=== PATIENT | female | born 1935 | race Caucasian/White ===

== ENCOUNTER 2018-10-14 18:35 | Inpatient (IN) | payer MEDICARE, OTHER ==
[2018-10-14 20:05] LABS: ADD MAN DIFF? NO
[2018-10-14 20:14] LABS: BASOPHIL # 0.1 10^3/ul (0.0-0.1); BASOPHILS % 0.6 % (0.0-2.0); EOSINOPHILS # 0.2 10^3/ul (0.0-0.5); EOSINOPHILS % 1.7 % (0.0-7.0); HEMATOCRIT 38.9 % (37.0-47.0); HEMOGLOBIN 12.6 g/dl (12.0-16.0); LYMPHOCYTES % 9.1 % (15.0-51.0); MEAN CORPUSCULAR HEMOGLOBIN 26.3 pg (29.0-33.0); MEAN CORPUSCULAR HGB CONC 32.4 g/dl (32.0-37.0); MEAN CORPUSCULAR VOLUME 81.2 fl (82.0-101.0); MEAN PLATELET VOLUME 11.3 fl (7.4-10.4); MONOCYTE # 1.1 10^3/ul (0.3-0.9); MONOCYTES % 9.6 % (0.0-11.0); NEUTROPHIL # 8.9 10^3/ul (1.6-7.5); NEUTROPHILS % 78.4 % (39.0-77.0); PLATELET COUNT 318 10^3/UL (140-415); RED BLOOD COUNT 4.79 10^6/ul (4.20-5.40); RED CELL DISTRIBUTION WIDTH 16.1 % (11.5-14.5)
[2018-10-14 20:14] LABS: WHITE BLOOD COUNT 11.4 10^3/ul (4.8-10.8)
[2018-10-14 20:41] LABS: ALANINE AMINOTRANSFERASE 24 IU/L (13-69); ALBUMIN 4.7 g/dl (3.3-4.9); ALBUMIN/GLOBULIN RATIO 1.34; ALKALINE PHOSPHATASE 74 IU/L (42-121); ANION GAP 15 (5-13); ASPARTATE AMINO TRANSFERASE 24 IU/L (15-46); BILIRUBIN,INDIRECT 0.7 mg/dl (0-1.1); BILIRUBIN,TOTAL 0.7 mg/dl (0.2-1.3); BLOOD UREA NITROGEN 10 mg/dl (7-20); CALCIUM 9.5 mg/dl (8.4-10.2); CARBON DIOXIDE 23 mmol/L (21-31); CHLORIDE 98 mmol/L (97-110); CREATININE 1.04 mg/dl (0.44-1.00); GLUCOSE 184 mg/dl (70-220); LIPASE 130 U/L (23-300); SODIUM 136 mmol/L (135-144); TOTAL PROTEIN 8.2 g/dl (6.1-8.1)
[2018-10-14 20:53] LABS: B-TYPE NATRIURETIC PEPTIDE 2300 PG/ML (0-450); TROPONIN-I < 0.012 ng/ml (0.000-0.120)
[2018-10-14] MEDS: FUROSEMIDE 20 MG INJ IV (20:53)
[2018-10-14 21:02] LABS: DIGOXIN 0.8 ng/ml (1.0-2.0)
[2018-10-14] MEDS: HEPARIN 5,000 UNIT/1 ML VIAL SC (21:54)
[2018-10-14] MEDS ORDERED: hydrALAzine 20 MG INJ IV (22:00)
[2018-10-14] MEDS ORDERED: DOCUSATE SODIUM 100 MG CAP PO (22:00)
[2018-10-14] MEDS ORDERED: NACL 0.9% 3 ML SYG IV (22:00)
[2018-10-14] MEDS: ATROPINE 1 MG/10 ML SYRINGE IV (22:03)
[2018-10-14 22:16] LABS: CREATINE KINASE 87 IU/L (23-200)
[2018-10-14 22:28] LABS: CK-MB 0.85 ng/ml (0.0-2.4); TROPONIN-I < 0.012 ng/ml (0.000-0.120)
[2018-10-15 01:43] LABS: MAGNESIUM 1.8 mg/dl (1.7-2.5)
[2018-10-15 01:44] LABS: CREATINE KINASE 84 IU/L (23-200)
[2018-10-15 01:56] LABS: CK-MB 0.84 ng/ml (0.0-2.4); TROPONIN-I < 0.012 ng/ml (0.000-0.120)
[2018-10-15] MEDS ORDERED: hydrALAzine 20 MG INJ IV (02:00)
[2018-10-15] MEDS: DOPamine-D5W 1.6 MG/ML 250 ML IV ×2 (02:18→15:10)
[2018-10-15] MEDS: MAGNESIUM SULFATE 2 GM/50 ML 50 ML IVPB (02:33)
[2018-10-15] MEDS: LIDOCAINE 1% (MPF) 5 ML VIAL SC (03:30)
[2018-10-15] MEDS: GLUCAGON 1 MG INJ IV (04:09)
[2018-10-15] MEDS: FUROSEMIDE 20 MG INJ IV (04:30)
[2018-10-15] MEDS: RIVAROXABAN 15 MG TABLET PO (04:45)
[2018-10-15] MEDS: ONDANSETRON 4 MG INJ IV ×2 (05:38→12:53)
[2018-10-15 06:13] LABS: MAGNESIUM 2.4 mg/dl (1.7-2.5)
[2018-10-15 06:13] LABS: CHOL/HDL RATIO 5.4 RATIO; CHOLESTEROL 195 mg/dl (100-200); HDL CHOLESTEROL 36 mg/dl (33-92); LDL CHOLESTEROL,CALCULATED 120 mg/dl; TRIGLYCERIDES 193 mg/dl (0-149)
[2018-10-15 06:21] LABS: CREATINE KINASE 89 IU/L (23-200)
[2018-10-15 06:25] LABS: DIGOXIN 0.7 ng/ml (1.0-2.0)
[2018-10-15 06:27] LABS: CK-MB 0.89 ng/ml (0.0-2.4); TROPONIN-I < 0.012 ng/ml (0.000-0.120)
[2018-10-15 06:44] LABS: THYROID STIMULATING HORMONE 0.806 MIU/L (0.465-4.680)
[2018-10-15] MEDS ORDERED: RIVAROXABAN 15 MG TABLET PO (07:35)
[2018-10-15 07:59] LABS: ADD MAN DIFF? NO
[2018-10-15 08:03] LABS: BASOPHIL # 0.1 10^3/ul (0.0-0.1); BASOPHILS % 0.4 % (0.0-2.0); EOSINOPHILS # 0.3 10^3/ul (0.0-0.5); EOSINOPHILS % 1.9 % (0.0-7.0); HEMATOCRIT 36.9 % (37.0-47.0); LYMPHOCYTES # 0.9 10^3/ul (0.8-2.9); LYMPHOCYTES % 6.4 % (15.0-51.0); MEAN CORPUSCULAR HEMOGLOBIN 26.8 pg (29.0-33.0); MEAN CORPUSCULAR HGB CONC 32.5 g/dl (32.0-37.0); MEAN CORPUSCULAR VOLUME 82.4 fl (82.0-101.0); MEAN PLATELET VOLUME 12.1 fl (7.4-10.4); MONOCYTES % 7.8 % (0.0-11.0); NEUTROPHIL # 11.2 10^3/ul (1.6-7.5); NEUTROPHILS % 83.1 % (39.0-77.0); PLATELET COUNT 309 10^3/UL (140-415); RED BLOOD COUNT 4.48 10^6/ul (4.20-5.40)
[2018-10-15 08:03] LABS: WHITE BLOOD COUNT 13.4 10^3/ul (4.8-10.8)
[2018-10-15 08:15] LABS: ALANINE AMINOTRANSFERASE 26 IU/L (13-69); ALBUMIN 4.4 g/dl (3.3-4.9); ALBUMIN/GLOBULIN RATIO 1.37; ALKALINE PHOSPHATASE 72 IU/L (42-121); ANION GAP 15 (5-13); ASPARTATE AMINO TRANSFERASE 28 IU/L (15-46); BILIRUBIN,INDIRECT 0.7 mg/dl (0-1.1); BILIRUBIN,TOTAL 0.7 mg/dl (0.2-1.3); BLOOD UREA NITROGEN 12 mg/dl (7-20); CALCIUM 9.2 mg/dl (8.4-10.2); CARBON DIOXIDE 21 mmol/L (21-31); CHLORIDE 100 mmol/L (97-110); CREATININE 1.19 mg/dl (0.44-1.00); GLUCOSE 206 mg/dl (70-220); POTASSIUM 3.4 mmol/L (3.5-5.1); SODIUM 136 mmol/L (135-144); TOTAL PROTEIN 7.6 g/dl (6.1-8.1)
[2018-10-15] MEDS: INSULIN ASPART [NOVOLOG] 3 ML PEN SC ×4 (08:15→20:41)
[2018-10-15] MEDS: POTASSIUM CHLORIDE 20 MEQ POWDER FOR ORAL SOLN PO (11:11)
[2018-10-15] MEDS: FUROSEMIDE 40 MG INJ IV (11:11)
[2018-10-15] MEDS ORDERED: FUROSEMIDE 20 MG INJ IV (14:00)
[2018-10-15 14:54] LABS: ADD UMIC YES; UR ASCORBIC ACID NEGATIVE (NEGATIVE); UR BILIRUBIN (Dip) NEGATIVE (NEGATIVE); UR BLOOD (Dip) 3+ mg/dL (NEGATIVE); UR CELLULAR CAST FEW /HPF (NONE SEEN); UR CLARITY CLOUDY (CLEAR); UR COLOR AMBER (YELLOW); UR GLUCOSE (Dip) NEGATIVE (NEGATIVE); UR HYALINE CAST FEW /HPF (NONE SEEN); UR KETONES (Dip) NEGATIVE (NEGATIVE); UR LEUKOCYTE ESTERASE (Dip) TRACE Leu/ul (NEGATIVE); UR MUCUS FEW /HPF (NONE SEEN); UR NITRITE (Dip) NEGATIVE (NEGATIVE); UR RBC 152 /HPF (0-5); UR SPECIFIC GRAVITY (Dip) 1.011 (1.003-1.030); UR SQUAMOUS EPITHELIAL CELL FEW /HPF (FEW); UR TOTAL PROTEIN (Dip) 2+ mg/dl (NEGATIVE); UR UROBILINOGEN (Dip) NEGATIVE (NEGATIVE); UR WBC 19 /HPF (0-5)
[2018-10-15 15:00] LABS: PROTIME 19.1 Sec (11.9-14.9); PT RATIO 1.5
[2018-10-15 15:01] LABS: PARTIAL THROMBOPLASTIN TIME 45.9 Sec (23.0-35.0)
[2018-10-16 05:40] LABS: ADD MAN DIFF? NO
[2018-10-16 05:44] LABS: WHITE BLOOD COUNT 12.3 10^3/ul (4.8-10.8)
[2018-10-16 05:44] LABS: BASOPHIL # 0.1 10^3/ul (0.0-0.1); BASOPHILS % 0.4 % (0.0-2.0); EOSINOPHILS # 0.2 10^3/ul (0.0-0.5); EOSINOPHILS % 1.5 % (0.0-7.0); HEMATOCRIT 33.6 % (37.0-47.0); LYMPHOCYTES # 0.8 10^3/ul (0.8-2.9); LYMPHOCYTES % 6.1 % (15.0-51.0); MEAN CORPUSCULAR HEMOGLOBIN 26.8 pg (29.0-33.0); MEAN CORPUSCULAR HGB CONC 32.7 g/dl (32.0-37.0); MEAN PLATELET VOLUME 11.3 fl (7.4-10.4); MONOCYTE # 1.3 10^3/ul (0.3-0.9); MONOCYTES % 10.8 % (0.0-11.0); NEUTROPHIL # 9.9 10^3/ul (1.6-7.5); NEUTROPHILS % 80.7 % (39.0-77.0); PLATELET COUNT 265 10^3/UL (140-415); RED CELL DISTRIBUTION WIDTH 15.9 % (11.5-14.5)
[2018-10-16 06:21] LABS: ALANINE AMINOTRANSFERASE 20 IU/L (13-69); ALBUMIN/GLOBULIN RATIO 1.33; ALKALINE PHOSPHATASE 56 IU/L (42-121); ANION GAP 12 (5-13); ASPARTATE AMINO TRANSFERASE 20 IU/L (15-46); BLOOD UREA NITROGEN 17 mg/dl (7-20); CALCIUM 9.5 mg/dl (8.4-10.2); CARBON DIOXIDE 27 mmol/L (21-31); CHLORIDE 99 mmol/L (97-110); CREATININE 1.29 mg/dl (0.44-1.00); GLUCOSE 155 mg/dl (70-220); MAGNESIUM 2.2 mg/dl (1.7-2.5); POTASSIUM 4.3 mmol/L (3.5-5.1); SODIUM 138 mmol/L (135-144)
[2018-10-16] MEDS: INSULIN ASPART [NOVOLOG] 3 ML PEN SC ×4 (07:03→21:00)
[2018-10-16] MEDS ORDERED: IOHEXOL 300MG/ML 30 ML BTL (07:03)
[2018-10-16] MEDS: POLYMYXIN/BACITRACIN 1L IRRIG IRR (07:03)
[2018-10-16] MEDS: LIDOCAINE 1% (MPF) 30 ML INJ (07:03)
[2018-10-16] MEDS: DOPamine-D5W 1.6 MG/ML 250 ML IV (08:02)
[2018-10-16] MEDS ORDERED: ETOMIDATE 20 MG INJ (08:15)
[2018-10-16] MEDS ORDERED: CEFAZOLIN 1 GM INJ (08:16)
[2018-10-16] MEDS ORDERED: FENTAnyl 50 MCG/ML VIAL (08:19)
[2018-10-16] MEDS ORDERED: GLUCOSE GEL 15 GRAM TUBE PO ×2 (10:00)
[2018-10-16] MEDS ORDERED: GLUCAGON 1 MG INJ IM (10:00)
[2018-10-16] MEDS ORDERED: DEXTROSE 50% 50 ML SYRINGE IV ×2 (10:00)
[2018-10-16] MEDS ORDERED: GLUCOSE GEL 15 GRAM TUBE BUCCAL (10:00)
[2018-10-16 10:49] LABS: AADO2 Arterial 126.4 mmHg (7.0-24.0); Allen Test ACCEPTAB; Arterial Base Excess -0.2 mmol/L (-3.0-3); Arterial Blood Gas Oxygen Sat 96.6 mmHG (95.0-100.0); Arterial COHb 0.2 % (0.0-3.0); Arterial Fraction of Oxyhgb 96.1 % (93.0-99.0); Arterial HCO3 23.7 mmol/L (22.0-26.0); Arterial MetHb 0.3 % (0.0-1.5); Arterial pCO2 36.5 mmhg (35-45); MODE NASAL CANNULA; Site Right Radial
[2018-10-16] MEDS: FUROSEMIDE 40 MG INJ IV ×2 (14:42→20:22)
[2018-10-16] MEDS: CEFAZOLIN 1 GM/50 ML (PMX) 50 ML IVPB ×2 (14:43→22:06)
[2018-10-17] MEDS: FUROSEMIDE 40 MG INJ IV ×2 (05:56→17:05)
[2018-10-17 07:31] LABS: ADD MAN DIFF? NO
[2018-10-17 07:39] LABS: ABNORMAL IP MESSAGE 1; BASOPHIL # 0.1 10^3/ul (0.0-0.1); BASOPHILS % 0.5 % (0.0-2.0); EOSINOPHILS # 0.2 10^3/ul (0.0-0.5); EOSINOPHILS % 2.1 % (0.0-7.0); HEMOGLOBIN 10.7 g/dl (12.0-16.0); LYMPHOCYTES # 0.6 10^3/ul (0.8-2.9); LYMPHOCYTES % 5.7 % (15.0-51.0); MEAN CORPUSCULAR HEMOGLOBIN 26.4 pg (29.0-33.0); MEAN CORPUSCULAR HGB CONC 31.5 g/dl (32.0-37.0); MEAN PLATELET VOLUME 11.4 fl (7.4-10.4); MONOCYTE # 1.1 10^3/ul (0.3-0.9); NEUTROPHILS % 80.4 % (39.0-77.0); PLATELET COUNT 230 10^3/UL (140-415); RED BLOOD COUNT 4.05 10^6/ul (4.20-5.40); RED CELL DISTRIBUTION WIDTH 15.9 % (11.5-14.5)
[2018-10-17 07:41] LABS: POSITIVE DIFF @See below
[2018-10-17] MEDS: INSULIN ASPART [NOVOLOG] 3 ML PEN SC ×4 (08:02→21:00)
[2018-10-17 08:28] LABS: ALANINE AMINOTRANSFERASE 22 IU/L (13-69); ALBUMIN 3.6 g/dl (3.3-4.9); ALBUMIN/GLOBULIN RATIO 1.28; ALKALINE PHOSPHATASE 56 IU/L (42-121); ANION GAP 13 (5-13); ASPARTATE AMINO TRANSFERASE 16 IU/L (15-46); BILIRUBIN,INDIRECT 0.6 mg/dl (0-1.1); BILIRUBIN,TOTAL 0.6 mg/dl (0.2-1.3); BLOOD UREA NITROGEN 21 mg/dl (7-20); CALCIUM 9.2 mg/dl (8.4-10.2); CARBON DIOXIDE 29 mmol/L (21-31); CHLORIDE 101 mmol/L (97-110); CREATININE 1.09 mg/dl (0.44-1.00); GLUCOSE 144 mg/dl (70-220); POTASSIUM 3.9 mmol/L (3.5-5.1); SODIUM 143 mmol/L (135-144); TOTAL PROTEIN 6.4 g/dl (6.1-8.1)
[2018-10-17 08:29] LABS: ANION GAP 12 (5-13); BLOOD UREA NITROGEN 20 mg/dl (7-20); CALCIUM 9.1 mg/dl (8.4-10.2); CARBON DIOXIDE 30 mmol/L (21-31); CHLORIDE 100 mmol/L (97-110); CREATININE 1.14 mg/dl (0.44-1.00); GLUCOSE 146 mg/dl (70-220); MAGNESIUM 1.9 mg/dl (1.7-2.5); POTASSIUM 3.7 mmol/L (3.5-5.1); SODIUM 142 mmol/L (135-144)
[2018-10-17 11:02] LABS: ADD MAN DIFF? NO
[2018-10-17 11:10] LABS: WHITE BLOOD COUNT 10.4 10^3/ul (4.8-10.8)
[2018-10-17 11:10] LABS: ABNORMAL IP MESSAGE 1; BASOPHILS % 0.4 % (0.0-2.0); EOSINOPHILS # 0.2 10^3/ul (0.0-0.5); EOSINOPHILS % 1.8 % (0.0-7.0); HEMATOCRIT 34.7 % (37.0-47.0); HEMOGLOBIN 10.9 g/dl (12.0-16.0); LYMPHOCYTES # 0.5 10^3/ul (0.8-2.9); LYMPHOCYTES % 5.2 % (15.0-51.0); MEAN CORPUSCULAR HEMOGLOBIN 26.4 pg (29.0-33.0); MEAN CORPUSCULAR HGB CONC 31.4 g/dl (32.0-37.0); MEAN PLATELET VOLUME 11.2 fl (7.4-10.4); MONOCYTE # 0.9 10^3/ul (0.3-0.9); MONOCYTES % 8.9 % (0.0-11.0); NEUTROPHIL # 8.7 10^3/ul (1.6-7.5); NEUTROPHILS % 83.1 % (39.0-77.0); PLATELET COUNT 240 10^3/UL (140-415); RED BLOOD COUNT 4.13 10^6/ul (4.20-5.40); RED CELL DISTRIBUTION WIDTH 15.9 % (11.5-14.5)
[2018-10-17 11:15] LABS: POSITIVE DIFF @See below
[2018-10-17] MEDS: POTASSIUM CHLORIDE 20 MEQ POWDER FOR ORAL SOLN PO (11:40)
[2018-10-17] MEDS: CEPHALEXIN 500 MG CAP PO ×2 (13:25→21:32)
[2018-10-17] MEDS: RIVAROXABAN 15 MG TABLET PO (17:05)
[2018-10-17] MEDS: LOSARTAN 50 MG TAB PO (17:07)
[2018-10-18] MEDS: hydrALAzine 20 MG INJ IV ×2 (03:56→20:25)
[2018-10-18 06:19] LABS: ADD MAN DIFF? NO
[2018-10-18] MEDS: FUROSEMIDE 40 MG INJ IV ×2 (06:22→17:20)
[2018-10-18 06:24] LABS: WHITE BLOOD COUNT 9.8 10^3/ul (4.8-10.8)
[2018-10-18 06:24] LABS: BASOPHIL # 0.1 10^3/ul (0.0-0.1); BASOPHILS % 0.5 % (0.0-2.0); EOSINOPHILS # 0.3 10^3/ul (0.0-0.5); HEMATOCRIT 34.6 % (37.0-47.0); LYMPHOCYTES # 0.7 10^3/ul (0.8-2.9); MEAN CORPUSCULAR HEMOGLOBIN 26.6 pg (29.0-33.0); MEAN CORPUSCULAR HGB CONC 31.8 g/dl (32.0-37.0); MEAN CORPUSCULAR VOLUME 83.8 fl (82.0-101.0); MEAN PLATELET VOLUME 11.3 fl (7.4-10.4); MONOCYTE # 0.9 10^3/ul (0.3-0.9); MONOCYTES % 9.1 % (0.0-11.0); NEUTROPHIL # 7.9 10^3/ul (1.6-7.5); PLATELET COUNT 266 10^3/UL (140-415); RED BLOOD COUNT 4.13 10^6/ul (4.20-5.40); RED CELL DISTRIBUTION WIDTH 15.9 % (11.5-14.5)
[2018-10-18 06:42] LABS: MAGNESIUM 1.8 mg/dl (1.7-2.5)
[2018-10-18 06:48] LABS: ALANINE AMINOTRANSFERASE 8 IU/L (13-69); ALBUMIN 3.8 g/dl (3.3-4.9); ALBUMIN/GLOBULIN RATIO 1.15; ALKALINE PHOSPHATASE 66 IU/L (42-121); ANION GAP 10 (5-13); ASPARTATE AMINO TRANSFERASE 18 IU/L (15-46); BILIRUBIN,INDIRECT 0.7 mg/dl (0-1.1); BILIRUBIN,TOTAL 0.7 mg/dl (0.2-1.3); BLOOD UREA NITROGEN 22 mg/dl (7-20); CALCIUM 8.9 mg/dl (8.4-10.2); CARBON DIOXIDE 32 mmol/L (21-31); CHLORIDE 99 mmol/L (97-110); GLUCOSE 131 mg/dl (70-220); POTASSIUM 3.8 mmol/L (3.5-5.1); SODIUM 141 mmol/L (135-144); TOTAL PROTEIN 7.1 g/dl (6.1-8.1)
[2018-10-18] MEDS: CEPHALEXIN 500 MG CAP PO ×2 (08:20→20:25)
[2018-10-18] MEDS: LOSARTAN 50 MG TAB PO ×2 (08:20→15:25)
[2018-10-18] MEDS: INSULIN ASPART [NOVOLOG] 3 ML PEN SC ×4 (08:25→20:26)
[2018-10-18] MEDS: POTASSIUM CHLORIDE 20 MEQ POWDER FOR ORAL SOLN PO (11:05)
[2018-10-18] MEDS: MAGNESIUM SULFATE 1 GM/D5W 100 ML IVPB (11:06)
[2018-10-18] MEDS: RIVAROXABAN 15 MG TABLET PO (17:20)
[2018-10-19] MEDS: hydrALAzine 20 MG INJ IV (04:30)
[2018-10-19] MEDS: CEPHALEXIN 500 MG CAP PO ×2 (08:14→19:53)
[2018-10-19] MEDS: FUROSEMIDE 20 MG TAB PO (08:14)
[2018-10-19] MEDS: POTASSIUM CHLORIDE (SR) 10 MEQ TAB PO (08:14)
[2018-10-19] MEDS: LOSARTAN 50 MG TAB PO (08:15)
[2018-10-19] MEDS: INSULIN ASPART [NOVOLOG] 3 ML PEN SC ×4 (08:28→19:56)
[2018-10-19 08:39] LABS: ADD MAN DIFF? NO
[2018-10-19 08:42] LABS: BASOPHIL # 0.1 10^3/ul (0.0-0.1); BASOPHILS % 0.7 % (0.0-2.0); EOSINOPHILS # 0.3 10^3/ul (0.0-0.5); EOSINOPHILS % 3.9 % (0.0-7.0); HEMATOCRIT 36.9 % (37.0-47.0); HEMOGLOBIN 11.9 g/dl (12.0-16.0); LYMPHOCYTES # 0.7 10^3/ul (0.8-2.9); LYMPHOCYTES % 7.6 % (15.0-51.0); MEAN CORPUSCULAR HEMOGLOBIN 27.1 pg (29.0-33.0); MEAN CORPUSCULAR HGB CONC 32.2 g/dl (32.0-37.0); MEAN CORPUSCULAR VOLUME 84.1 fl (82.0-101.0); MEAN PLATELET VOLUME 10.9 fl (7.4-10.4); MONOCYTE # 0.8 10^3/ul (0.3-0.9); MONOCYTES % 8.8 % (0.0-11.0); NEUTROPHIL # 6.8 10^3/ul (1.6-7.5); NEUTROPHILS % 78.8 % (39.0-77.0); PLATELET COUNT 266 10^3/UL (140-415); RED BLOOD COUNT 4.39 10^6/ul (4.20-5.40); RED CELL DISTRIBUTION WIDTH 15.5 % (11.5-14.5)
[2018-10-19 08:42] LABS: WHITE BLOOD COUNT 8.7 10^3/ul (4.8-10.8)
[2018-10-19 09:22] LABS: ALANINE AMINOTRANSFERASE 10 IU/L (13-69); ALBUMIN/GLOBULIN RATIO 1.11; ALKALINE PHOSPHATASE 74 IU/L (42-121); ANION GAP 10 (5-13); ASPARTATE AMINO TRANSFERASE 26 IU/L (15-46); BILIRUBIN,INDIRECT 0.6 mg/dl (0-1.1); BILIRUBIN,TOTAL 0.6 mg/dl (0.2-1.3); BLOOD UREA NITROGEN 28 mg/dl (7-20); CALCIUM 9.2 mg/dl (8.4-10.2); CARBON DIOXIDE 32 mmol/L (21-31); CHLORIDE 98 mmol/L (97-110); CREATININE 1.06 mg/dl (0.44-1.00); GLUCOSE 158 mg/dl (70-220); POTASSIUM 3.9 mmol/L (3.5-5.1); SODIUM 140 mmol/L (135-144); TOTAL PROTEIN 7.6 g/dl (6.1-8.1)
[2018-10-19 09:24] LABS: MAGNESIUM 2.1 mg/dl (1.7-2.5)
[2018-10-19] MEDS: AMLODIPINE 10 MG TAB PO (09:41)
[2018-10-19] MEDS: FUROSEMIDE 40 MG INJ IV ×2 (11:36→17:08)
[2018-10-19] MEDS: METOLAZONE 2.5 MG TAB PO (12:13)
[2018-10-19] MEDS: RIVAROXABAN 15 MG TABLET PO (17:08)
[2018-10-20] MEDS: FUROSEMIDE 40 MG INJ IV ×2 (05:30→17:18)
[2018-10-20] MEDS ORDERED: FUROSEMIDE 40 MG TAB PO (06:00)
[2018-10-20] MEDS: hydrALAzine 20 MG INJ IV (06:45)
[2018-10-20] MEDS: BISACODYL (EC) 5 MG TAB PO (06:55)
[2018-10-20] MEDS: ACETAMINOPHEN 325 MG TAB PO (06:55)
[2018-10-20] MEDS: POTASSIUM CHLORIDE (SR) 10 MEQ TAB PO (08:29)
[2018-10-20] MEDS: CEPHALEXIN 500 MG CAP PO ×2 (08:30→21:47)
[2018-10-20] MEDS: LOSARTAN 50 MG TAB PO (08:30)
[2018-10-20] MEDS: AMLODIPINE 10 MG TAB PO (08:30)
[2018-10-20] MEDS: INSULIN ASPART [NOVOLOG] 3 ML PEN SC ×4 (08:32→21:56)
[2018-10-20 09:51] LABS: ADD MAN DIFF? NO
[2018-10-20 09:54] LABS: BASOPHIL # 0.1 10^3/ul (0.0-0.1); BASOPHILS % 0.8 % (0.0-2.0); EOSINOPHILS # 0.3 10^3/ul (0.0-0.5); EOSINOPHILS % 3.9 % (0.0-7.0); HEMATOCRIT 40.9 % (37.0-47.0); HEMOGLOBIN 12.8 g/dl (12.0-16.0); LYMPHOCYTES # 0.9 10^3/ul (0.8-2.9); MEAN CORPUSCULAR HEMOGLOBIN 25.9 pg (29.0-33.0); MEAN CORPUSCULAR HGB CONC 31.3 g/dl (32.0-37.0); MEAN CORPUSCULAR VOLUME 82.8 fl (82.0-101.0); MEAN PLATELET VOLUME 11.3 fl (7.4-10.4); MONOCYTE # 0.8 10^3/ul (0.3-0.9); MONOCYTES % 9.5 % (0.0-11.0); NEUTROPHIL # 6.6 10^3/ul (1.6-7.5); NEUTROPHILS % 75.3 % (39.0-77.0); PLATELET COUNT 319 10^3/UL (140-415); RED BLOOD COUNT 4.94 10^6/ul (4.20-5.40); RED CELL DISTRIBUTION WIDTH 15.5 % (11.5-14.5)
[2018-10-20 09:54] LABS: WHITE BLOOD COUNT 8.8 10^3/ul (4.8-10.8)
[2018-10-20 10:15] LABS: ALANINE AMINOTRANSFERASE 15 IU/L (13-69); ALBUMIN 4.3 g/dl (3.3-4.9); ALBUMIN/GLOBULIN RATIO 1.16; ALKALINE PHOSPHATASE 82 IU/L (42-121); ANION GAP 11 (5-13); ASPARTATE AMINO TRANSFERASE 35 IU/L (15-46); BILIRUBIN,INDIRECT 0.6 mg/dl (0-1.1); BILIRUBIN,TOTAL 0.6 mg/dl (0.2-1.3); BLOOD UREA NITROGEN 27 mg/dl (7-20); CALCIUM 10.1 mg/dl (8.4-10.2); CARBON DIOXIDE 32 mmol/L (21-31); CHLORIDE 96 mmol/L (97-110); CREATININE 1.08 mg/dl (0.44-1.00); GLUCOSE 180 mg/dl (70-220); POTASSIUM 3.5 mmol/L (3.5-5.1); SODIUM 139 mmol/L (135-144)
[2018-10-20] MEDS: METOLAZONE 5 MG TAB PO (11:35)
[2018-10-20] MEDS: DILTIAZEM (CD) 120 MG CAP PO (11:36)
[2018-10-20] MEDS ORDERED: ALBUTEROL/IPRATROPIUM (NEB) 3 ML AMP HHN (14:30)
[2018-10-20] MEDS: RIVAROXABAN 15 MG TABLET PO (17:18)
[2018-10-20] MEDS: BUDESONIDE (NEB) 0.5MG/2ML AMP HHN (19:47)
[2018-10-20] MEDS: ALBUTEROL/IPRATROPIUM (NEB) 3 ML AMP HHN (19:47)
[2018-10-21] MEDS: hydrALAzine 20 MG INJ IV (01:12)
[2018-10-21] MEDS: FUROSEMIDE 40 MG INJ IV (05:48)
[2018-10-21 06:43] LABS: PHOSPHORUS 5.2 mg/dl (2.5-4.9)
[2018-10-21] MEDS: DILTIAZEM (CD) 120 MG CAP PO (08:01)
[2018-10-21] MEDS: CEPHALEXIN 500 MG CAP PO ×2 (08:01→22:30)
[2018-10-21] MEDS: LOSARTAN 50 MG TAB PO (08:01)
[2018-10-21] MEDS: POTASSIUM CHLORIDE (SR) 10 MEQ TAB PO (08:01)
[2018-10-21] MEDS: AMLODIPINE 10 MG TAB PO (08:02)
[2018-10-21] MEDS: INSULIN ASPART [NOVOLOG] 3 ML PEN SC ×4 (08:22→22:54)
[2018-10-21] MEDS: BUDESONIDE (NEB) 0.5MG/2ML AMP HHN (08:39)
[2018-10-21] MEDS: ALBUTEROL/IPRATROPIUM (NEB) 3 ML AMP HHN (08:39)
[2018-10-21 09:58] LABS: ANION GAP 14 (5-13); BLOOD UREA NITROGEN 36 mg/dl (7-20); CALCIUM 10.6 mg/dl (8.4-10.2); CARBON DIOXIDE 31 mmol/L (21-31); CHLORIDE 94 mmol/L (97-110); CREATININE 1.26 mg/dl (0.44-1.00); GLUCOSE 155 mg/dl (70-220); POTASSIUM 3.6 mmol/L (3.5-5.1); SODIUM 139 mmol/L (135-144)
[2018-10-21] MEDS: FLUTICASONE/VILANTEROL 100-25 INH (12:39)
[2018-10-21] MEDS: TIOTROPIUM 18 MCG CAPSULE INHA DEV INH (12:40)
[2018-10-21] MEDS: RIVAROXABAN 15 MG TABLET PO (17:25)
[2018-10-22 06:35] LABS: ADD MAN DIFF? NO
[2018-10-22 06:42] LABS: BASOPHIL # 0.1 10^3/ul (0.0-0.1); BASOPHILS % 0.9 % (0.0-2.0); EOSINOPHILS # 0.4 10^3/ul (0.0-0.5); EOSINOPHILS % 4.3 % (0.0-7.0); HEMATOCRIT 37.8 % (37.0-47.0); HEMOGLOBIN 12.1 g/dl (12.0-16.0); LYMPHOCYTES % 12.3 % (15.0-51.0); MEAN CORPUSCULAR HEMOGLOBIN 26.2 pg (29.0-33.0); MEAN PLATELET VOLUME 11.2 fl (7.4-10.4); MONOCYTE # 0.9 10^3/ul (0.3-0.9); MONOCYTES % 10.4 % (0.0-11.0); NEUTROPHIL # 6.1 10^3/ul (1.6-7.5); NEUTROPHILS % 71.7 % (39.0-77.0); PLATELET COUNT 259 10^3/UL (140-415); RED BLOOD COUNT 4.61 10^6/ul (4.20-5.40); RED CELL DISTRIBUTION WIDTH 15.6 % (11.5-14.5)
[2018-10-22 06:42] LABS: WHITE BLOOD COUNT 8.5 10^3/ul (4.8-10.8)
[2018-10-22] MEDS: INSULIN ASPART [NOVOLOG] 3 ML PEN SC ×4 (07:57→20:54)
[2018-10-22 08:14] LABS: ANION GAP 11 (5-13); BLOOD UREA NITROGEN 42 mg/dl (7-20); CALCIUM 10.2 mg/dl (8.4-10.2); CARBON DIOXIDE 33 mmol/L (21-31); CHLORIDE 95 mmol/L (97-110); CREATININE 1.56 mg/dl (0.44-1.00); GLUCOSE 156 mg/dl (70-220); MAGNESIUM 2.2 mg/dl (1.7-2.5); POTASSIUM 3.6 mmol/L (3.5-5.1); SODIUM 139 mmol/L (135-144)
[2018-10-22] MEDS: LOSARTAN 50 MG TAB PO (08:44)
[2018-10-22] MEDS: POTASSIUM CHLORIDE (SR) 10 MEQ TAB PO (08:44)
[2018-10-22] MEDS: CEPHALEXIN 500 MG CAP PO (08:44)
[2018-10-22] MEDS: AMLODIPINE 10 MG TAB PO (08:45)
[2018-10-22] MEDS: DILTIAZEM (CD) 120 MG CAP PO (08:45)
[2018-10-22] MEDS: TIOTROPIUM 18 MCG CAPSULE INHA DEV INH ×2 (09:00→13:58)
[2018-10-22] MEDS: FLUTICASONE/VILANTEROL 100-25 INH (11:11)
[2018-10-22] MEDS: RIVAROXABAN 15 MG TABLET PO (17:06)
[2018-10-22] MEDS: hydrALAzine 20 MG INJ IV (18:46)
[2018-10-23] MEDS: INSULIN ASPART [NOVOLOG] 3 ML PEN SC ×2 (07:40→11:51)
[2018-10-23 08:16] LABS: ADD MAN DIFF? NO
[2018-10-23 08:30] LABS: WHITE BLOOD COUNT 8.1 10^3/ul (4.8-10.8)
[2018-10-23 08:30] LABS: BASOPHIL # 0.1 10^3/ul (0.0-0.1); BASOPHILS % 1.1 % (0.0-2.0); EOSINOPHILS # 0.3 10^3/ul (0.0-0.5); EOSINOPHILS % 4.2 % (0.0-7.0); HEMATOCRIT 35.9 % (37.0-47.0); HEMOGLOBIN 11.5 g/dl (12.0-16.0); LYMPHOCYTES % 12.5 % (15.0-51.0); MEAN PLATELET VOLUME 11.1 fl (7.4-10.4); MONOCYTE # 0.9 10^3/ul (0.3-0.9); MONOCYTES % 10.6 % (0.0-11.0); NEUTROPHIL # 5.8 10^3/ul (1.6-7.5); NEUTROPHILS % 71.2 % (39.0-77.0); PLATELET COUNT 246 10^3/UL (140-415); RED BLOOD COUNT 4.43 10^6/ul (4.20-5.40); RED CELL DISTRIBUTION WIDTH 15.4 % (11.5-14.5)
[2018-10-23] MEDS: FLUTICASONE/VILANTEROL 100-25 INH (08:34)
[2018-10-23] MEDS: DILTIAZEM (CD) 120 MG CAP PO (08:35)
[2018-10-23] MEDS: POTASSIUM CHLORIDE (SR) 10 MEQ TAB PO (08:36)
[2018-10-23] MEDS: TIOTROPIUM 18 MCG CAPSULE INHA DEV INH (08:36)
[2018-10-23] MEDS: AMLODIPINE 10 MG TAB PO (08:36)
[2018-10-23] MEDS: LOSARTAN 50 MG TAB PO (08:36)
[2018-10-23 08:54] LABS: ANION GAP 10 (5-13); BLOOD UREA NITROGEN 48 mg/dl (7-20); CALCIUM 9.9 mg/dl (8.4-10.2); CARBON DIOXIDE 32 mmol/L (21-31); CHLORIDE 95 mmol/L (97-110); CREATININE 1.39 mg/dl (0.44-1.00); GLUCOSE 147 mg/dl (70-220); MAGNESIUM 2.3 mg/dl (1.7-2.5); POTASSIUM 3.8 mmol/L (3.5-5.1); SODIUM 137 mmol/L (135-144)
[2018-10-24] MEDS ORDERED: FUROSEMIDE 20 MG TAB PO (09:00)
== END 2018-10-23 16:40 | disposition home or self-care (01) | DRG 242 ==
LOC: TEL 10-16 17:15 → E/R 18:35 → ICU 10-15 02:03 → 6WM 21:38
PROC: 0JH606Z Insertion of Pacemaker, Dual Chamber into Chest Subcutaneous Tissue and Fascia, Open Approach (ICD-10-PCS; principal; 2018-10-16 07:30)
PROC: 02H63JZ Insertion of Pacemaker Lead into Right Atrium, Percutaneous Approach (ICD-10-PCS; 2018-10-16 07:30)
PROC: 02HK3JZ Insertion of Pacemaker Lead into Right Ventricle, Percutaneous Approach (ICD-10-PCS; 2018-10-16 07:30)
DX: I49.5 Sick sinus syndrome (principal); I50.33 Acute on chronic diastolic (congestive) heart failure; I13.0 Hypertensive heart and chronic kidney disease with heart failure and stage 1 through stage 4 chronic kidney disease, or unspecified chronic kidney disease; N17.9 Acute kidney failure, unspecified; N18.9 Chronic kidney disease, unspecified; E11.22 Type 2 diabetes mellitus with diabetic chronic kidney disease; I48.0 Paroxysmal atrial fibrillation; R09.02 Hypoxemia
CPT/HCPCS: 36415; 36569; 36600; 71045; 71250; 80048; 80053; 80061; 80162; 81001; 82550; 82553; 82803; 82962; 83036; 83690; 83735; 83880; 84100; 84443; 84484; 85025; 85610; 85730; 93005; 93306; 93308; 94640; 94664; 96374; 97161; 99285-25